=== PATIENT | male | born 1940 ===

== ENCOUNTER 2019-11-23 18:23 | Inpatient (IN) | payer MEDICARE, OTHER ==
[~2019-11-23] VITALS: Ht 177.8 cm; Wt 98.9 kg
--- NOTE | ~2019-11-23 | HEMODYNAMI ---
PATIENT:PERRY VICK MEDICAL RECORD: [id number] : 44 LOCATION:D.ND D.2225 ADMISSION DATE: 11/23/19 Generatedon:11/25/20199:54 Patient name: PERRY VICK Patient #: [id number] SSN: DO B: 1940 Date of study: 11/25/2019 Page: Of Hemodynamic Procedure Report Patient Data Patient Demographics Procedure consent was obtained First Name: PERRY Gender: Male Last Name: NAVA : 1940 Patient #: [id number] Age: 79 year(s) Race: Unknown Additional ID: [id number] Contact details Address: [address] [place] [address] State: [place] City: [facility] Zip code: [address] Admission Admission Data Admission Date: 11/23/2019 Admission Time: 18:23 Room #: D.2225 Procedure Procedure Types Cath Procedure Peripheral Cath Diagnostic Procedure Miscellaneous Procedure Description Procedure Date Procedure Date: 11/25/2019 Procedure Start Time: 9:40 Procedure Staff Name Function Franklin Benitez MD Performing Physician Guerrero Holden RT Monitor RUTHIE FLOYD RT Scrub Roxy Mendes RN Nurse Procedure Data Cath Procedure Fluoroscopy Diagnostic fluoroscopy Total fluoroscopy Time: 4.4 time: 4.4 min min Diagnostic fluoroscopy Total fluoroscopy dose: 153 dose: 153 mGy mGy Contrast Material Contrast Material Type Amount (ml) Isovue 300 20 Diagnostic catheters Device Type Used For End Catheter Placement Merit Impress KA 2 5Fr 40CM catheter ([id number]) Hemodynamics Rest Pre Cath Intra NCS Post Cath Procedure Log Time Note 9:18:07 Time tracking: Regular hours (M-F 7:00 - 5:00) 9:18:09 Guerrero Holden RT (R) (CV) sent for patient. Start room use. 9:18:25 Time tracking: Regular hours (M-F 7:00 - 5:00) 9:18:33 Patient received from Med/Surg to IR Alert and oriented. Tansferred to table in Supine position. 9:18:37 Signed procedure consent form obtained from guardian. 9:18:37 Warm blankets applied, and moe hugger turned on for patient comfort. 9:18:40 Full Disclosure recording started 9:18:40 9:18:41 Pre-procedure instructions explained to patient. 9:18:42 Pre-procedure instructions explained to patient. 9:18:44 Family unavailable. 9:18:46 Patient NPO since Midnight. 9:21:18 Use device set IR Diagnostic 9:21:20 Sterile Angiographic Pack opened to sterile field. 9:21:21 Bag Decanter (2002S) opened to sterile field. 9:21:42 Pre-op teaching completed and patient verbalized understanding. 9:22:49 IV patent on arrival in right hand with 0.45%NaCl at KVO. 9:39:19 Left Abdomen was prepped with chlora-prep and draped in sterile fashion. 9:39:20 Physician arrived 9:39:20 --------ALL STOP TIME OUT------ 9:39:21 Final Timeout: patient, procedure, and site verified with staff and physician. All members of the team are in agreement. 9:39:26 Left abdomen site verified by team. 9:39:45 Sedation plan: Local Anesthetic Medication:Lidocaine 9:39:53 Procedure started. 9:40:03 Local anesthetic to Abdominal area with Lidocaine 1% by Franklin Benitez MD.INITIAL ACCESS ONLY 9:40:40 DILATOR, VESSEL 5/20 opened to sterile field. 9:40:49 GLIDE WIRE ANGLE 180cm ([id number]) opened to sterile field. 9:44:34 A Merit Impress KA 2 5Fr 40CM catheter ([id number]) was advanced over the wire and used for . 9:52:41 Procedure ended.(Physican Out) 9:52:53 Fluoroscopy time 04.40 minutes. 9:52:57 Fluoroscopy dose: 153 mGy 9:52:57 Flurop Dose total: 153 9:53:01 Contrast amount:Isovue 300 20ml. 9:53:10 Post Abdominal area:stable 9:53:16 Report given to Med/Surg. 9:53:22 Patient transfered to Med/Surg with Bed. Device Usage Item Name Manufacture Quantity Catalog Hospital Part Current Minimal Lot# / Number Charge Number Stock Stock Serial# Code Sterile Cardinal 1 [id number] 5 Angiographic Health Pack Bag Decanter Microtek [id number] 37586 [id number] 5 () Medical Inc. DILATOR, Engagor Medical 1 [id number] 13195 [id number] 5 [id number] VESSEL 12/08 GLIDE WIRE Terumo 1 [id number] 996531 [id number] 5 ANGLE 180cm ([id number]) Merit Merit 1 [id number] [id number] [id number] 5 Impress KA 2 Medical 5Fr 40CM catheter ([id number]) Signature Audit [place] Stage Time Signature Unsigned Intra-Procedure 11/25/2019 Guerrero 9:54:30 AM Navin RT (R) (CV) [facility] [address] [place] [address]
[2019-11-23] MEDS ORDERED: PACERONE200 MG PO (18:48)
[2019-11-23] MEDS ORDERED: BAYER CHEWABLE81 MG PEG (18:49)
[2019-11-23] MEDS ORDERED: LIPITOR20 MG PEG ×2 (18:50→18:52)
[2019-11-23] MEDS ORDERED: ATIVAN0.5 MG PO (18:50)
[2019-11-23] MEDS ORDERED: CARBIDOPA-LEVO1 EAC2 PEG (18:54)
[2019-11-23] MEDS ORDERED: COLACE100 MG PEG (18:55)
[2019-11-23] MEDS ORDERED: CELEXA10 MG PEG (18:55)
[2019-11-23] MEDS ORDERED: GEMFIBROZIL600 MG PEG (18:56)
[2019-11-23] MEDS ORDERED: FUROSEMIDE20 MG PEG (18:58)
[2019-11-23] MEDS ORDERED: SYNTHROID150 MCG PEG (18:58)
[2019-11-23] MEDS ORDERED: MELATONIN 3 MG1 TAB PO (18:59)
[2019-11-23] MEDS ORDERED: MULTI-DAY VITAM1 TAB PEG (19:01)
[2019-11-23] MEDS ORDERED: NYSTATIN OINTME15 GM TOPICAL (19:03)
[2019-11-23] MEDS ORDERED: FUROSEMIDE40 MG PO (22:48)
[2019-11-23] MEDS ORDERED: NYSTATIN1 PWD TOPICAL (22:49)
[2019-11-23] MEDS ORDERED: PEPCID AC20 MG PO ×2 (22:50)
[2019-11-23] MEDS ORDERED: MIRALAX17 GM PO (23:09)
[2019-11-23] MEDS ORDERED: METHOCARBAMOL500 MG PO (23:12)
[2019-11-23] MEDS ORDERED: MIRAPEX0.25 MG PO (23:12)
[2019-11-23] MEDS ORDERED: THERMOTABS 1 GM1 GM PO (23:13)
[2019-11-23] MEDS ORDERED: SENNA LAXATIVE8.6 MG PO (23:13)
[2019-11-23] MEDS ORDERED: TRAZODONE HCL150 MG (23:14)
[2019-11-23] MEDS ORDERED: ACETAMINOPHEN325 MG PO (23:39)
[2019-11-23] MEDS ORDERED: ASCORBIC ACID500 MG PO (23:40)
[2019-11-23] MEDS ORDERED: ZINC-220220 MG PO (23:40)
[2019-11-23 23:47] VITALS: BP 133/73; BMI 31.3
[2019-11-24 01:03] LABS: BASOPHILS 0.1 % (0-2); EOSINOPHILS 0.7 % (0-7); HEMATOCRIT 37.3 % (42.0-54.0); IMMATURE GRANULOCYTES 0.1 % (0-5); LYMPHOCYTES 19.9 % (15-50); MCH 32.4 pg (26.0-34.0); MCHC 32.2 g/dL (31.0-37.0); MCV 100.8 fL (80.0-100.0); MEAN PLATELET VOLUME 9.9 fL (7.4-10.4); MONOCYTES 11.2 % (2-11); PLATELET COUNT 252 10x3/uL (130-400); RDW 15.2 % (11.5-14.5); WBC 6.9 10x3/uL (4.8-10.8)
[2019-11-24 01:46] LABS: ANION GAP 9.5 mmol/L (8-16); BILIRUBIN - TOTAL 0.53 mg/dL (0.2-1.3); CALCIUM 9.5 mg/dL (8.5-10.1); CARBON DIOXIDE 30.7 mmol/L (21.0-32.0); CREATININE - SERUM 1.6 mg/dL (0.6-1.3); POTASSIUM - SERUM 4.2 mmol/L (3.5-5.1); PROTEIN - SERUM 7.3 g/dL (6.4-8.2)
[2019-11-24 05:50] VITALS: BP 114/53
[2019-11-24 05:54] LABS: APTT 30.2 SECONDS (22.8-39.4); INR 1.34 (0.85-1.17); PROTIME 16.5 SECONDS (11.6-15.0)
[2019-11-24 06:15] LABS: ANION GAP 10.8 mmol/L (8-16); BILIRUBIN - TOTAL 0.6 mg/dL (0.2-1.3); CALCIUM 9.3 mg/dL (8.5-10.1); CARBON DIOXIDE 32.3 mmol/L (21.0-32.0); CREATININE - SERUM 1.5 mg/dL (0.6-1.3); MAGNESIUM - SERUM 2.4 mg/dL (1.8-2.4); PHOSPHOROUS 3.9 mg/dL (2.5-4.9); POTASSIUM - SERUM 4.1 mmol/L (3.5-5.1); PROTEIN - SERUM 7.3 g/dL (6.4-8.2)
[2019-11-24 06:53] LABS: HEMATOCRIT 37.9 % (42.0-54.0); HEMOGLOBIN 12.2 g/dL (13.5-17.5); MCH 33.2 pg (26.0-34.0); MCHC 32.2 g/dL (31.0-37.0); MEAN PLATELET VOLUME 11.5 fL (7.4-10.4); PLATELET COUNT 217 10x3/uL (130-400); RBC 3.67 10x6/uL (4.20-6.10); RDW 15.7 % (11.5-14.5); WBC 7.2 10x3/uL (4.8-10.8)
[2019-11-24 07:15] LABS: MCV 103.3 fL (80.0-100.0)
[2019-11-24 09:16] VITALS: BP 120/63
[2019-11-24 12:56] LABS: LYMPHOCYTES 27 % (15-50); MONOCYTES 9 % (2-11); NEUTROPHILS 61 % (40-80); PLATELET ESTIMATE NORMAL
[2019-11-24 13:14] VITALS: Ht 177.8 cm; Wt 98.9 kg
[2019-11-24 13:20] VITALS: BP 121/72
--- NOTE | 2019-11-24 16:30 | NUR ---
PATIENT DRESSING TO PEG SITE CHANGED. PATIENT REPOSITIONED AND CLEANED UP AGAIN AT THIS TIME. IV INTACT. CALL LIGHT WITHIN REACH.
--- NOTE | 2019-11-24 18:45 | NUR ---
PATIENT IN BED WITH IV INTACT. NO COMPLAINTS. CALL LIGHT WITHIN REACH.
[2019-11-24 18:56] VITALS: BP 128/63
[2019-11-24 20:00] VITALS: BP 131/62
--- NOTE | 2019-11-25 03:14 | NUR ---
I have reviewed this patient and I concur with the Shift Assessment completed by the Licensed Practical Nurse today this shift.
[2019-11-25 04:00] VITALS: BP 145/71
[2019-11-25 05:29] LABS: BASOPHILS 0.4 % (0-2); HEMATOCRIT 35.5 % (42.0-54.0); HEMOGLOBIN 11.2 g/dL (13.5-17.5); IMMATURE GRANULOCYTES 0.2 % (0-5); LYMPHOCYTES 26.2 % (15-50); MCH 33.1 pg (26.0-34.0); MCHC 31.5 g/dL (31.0-37.0); MEAN PLATELET VOLUME 9.8 fL (7.4-10.4); MONOCYTES 14.5 % (2-11); NEUTROPHILS 56.7 % (40-80); PLATELET COUNT 246 10x3/uL (130-400); RBC 3.38 10x6/uL (4.20-6.10); RDW 15.3 % (11.5-14.5)
[2019-11-25 05:47] LABS: WBC 5.1 10x3/uL (4.8-10.8)
[2019-11-25 06:00] LABS: ANION GAP 12.7 mmol/L (8-16); CALCIUM 9.2 mg/dL (8.5-10.1); CARBON DIOXIDE 29.6 mmol/L (21.0-32.0); CREATININE - SERUM 1.4 mg/dL (0.6-1.3); MAGNESIUM - SERUM 2.5 mg/dL (1.8-2.4); PHOSPHOROUS 3.5 mg/dL (2.5-4.9); POTASSIUM - SERUM 4.3 mmol/L (3.5-5.1)
[2019-11-25 08:00] VITALS: BP 124/63
[2019-11-25 12:00] VITALS: BP 123/63
--- NOTE | 2019-11-25 14:42 | NUR ---
Nutrition consult for resumption of TF: Received order for Dr. Gandhi to resume TF. custodial regimen as follows: Nepro started @ 25 ml/hr. Increase 10 ml q 4 hours to goal rate of 55 ml/hr Flush tube with 100 ml H2O q 4 hours HOB > 30 degrees Thank you for the consult. RDN following.
[2019-11-25 16:00] VITALS: BP 120/57
--- NOTE | 2019-11-25 17:00 | NUR ---
PEG TUBE FLUSHED AND MEDS GIVEN. FLUSHED AGAIN AND STARTED TF ORDERED. PATIENT IN BED WITH IV INTACT. NO COMPLAINTS OR SIGNS OF DISTRESS. CALL LIGHT WITHIN REACH.
[2019-11-25 20:00] VITALS: BP 133/64
--- NOTE | 2019-11-25 23:00 | NUR ---
ADVANCED G TUBE FEEDING BY 10ML/HR. NOW AT 35ML/HR. RESIDUAL 0. WILL CONTINUE TO CLOSELY MONITOR.
--- NOTE | 2019-11-26 01:02 | NUR ---
PT RESTING IN BED. EYES CLOSED. NO SIGNS OF DISTRESS. BREATHING EVEN AND UNLABROED. IV SITE RT HAND DRESSING CLEAN DRY AND INTACT. NO SIGNS OF INFECTION OR INFULTRATION. GENERLIZED WEAKNESS. G TUBE PRESENT CLEAN DRY AND INTACT. TUBE FEEDING GOING. 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 PT HAS PARKINSONS. WILL CONTINUE PLAN OF CARE. CALL LIGHT IN REACH. BED LOWERED AND LOCKED. BED RAILS UPX2.
--- NOTE | 2019-11-26 03:43 | NUR ---
INCREASED TUBE FEEDING BY 10ML/HR. NOW AT 45ML/HR. RESIDUAL 0. WILL CONTINUE TO CLOSELY MONITOR.
[2019-11-26 04:00] VITALS: BP 130/58
--- NOTE | 2019-11-26 04:24 | NUR ---
I have reviewed this patient and I concur with the Shift Assessment completed by the Licensed Practical Nurse today this shift.
[2019-11-26 06:21] LABS: BASOPHILS 0.4 % (0-2); EOSINOPHILS 1.6 % (0-7); HEMATOCRIT 35.4 % (42.0-54.0); HEMOGLOBIN 11.1 g/dL (13.5-17.5); IMMATURE GRANULOCYTES 0.2 % (0-5); LYMPHOCYTES 26.9 % (15-50); MCH 32.6 pg (26.0-34.0); MCHC 31.4 g/dL (31.0-37.0); MCV 104.1 fL (80.0-100.0); MEAN PLATELET VOLUME 9.8 fL (7.4-10.4); MONOCYTES 15.2 % (2-11); NEUTROPHILS 55.7 % (40-80); PLATELET COUNT 268 10x3/uL (130-400); RDW 15.4 % (11.5-14.5); WBC 5.1 10x3/uL (4.8-10.8)
[2019-11-26 06:46] LABS: ANION GAP 13.5 mmol/L (8-16); CALCIUM 9.1 mg/dL (8.5-10.1); CARBON DIOXIDE 26.3 mmol/L (21.0-32.0); CREATININE - SERUM 1.4 mg/dL (0.6-1.3); MAGNESIUM - SERUM 2.3 mg/dL (1.8-2.4); PHOSPHOROUS 2.9 mg/dL (2.5-4.9); POTASSIUM - SERUM 3.8 mmol/L (3.5-5.1)
--- NOTE | 2019-11-26 07:38 | NUR ---
ALERT AND ORIENTED. LUNGS CLEAR BILATERALLY. HEART SOUNDS S1 AND S2 HEARD IN ALL CABRAL. BOWEL SOUNDS ACTIVE X 4. PEG PATENT. WILL CHECK RESIDUAL AND INCREASE RATE. IV TO RIGHT HAND PATENT WITHOUT REDNESS. DENIES NEEDS. BED LOW. CALL SHEEHAN AND PERSONAL ITEMS IN REACH. WILL CONTINUE TO MONITOR.
[2019-11-26 08:00] VITALS: BP 110/49
--- NOTE | 2019-11-26 09:00 | NUR ---
PEG TUBE CHECKED WITH NO RESIDUAL NOTED. FEED INCREASED PER ORDER TO GOAL RATE OF 55ML/HR.
[2019-11-26 12:00] VITALS: BP 126/63
--- NOTE | 2019-11-26 12:24 | MORECARE ---
CASE MANAGEMENT DISCHARGE SUMMARY PATIENT: PERRY VICK UNIT: [id number] ADM DATE: 11/23/19 AGE: 79 : 42 SEX: M ROOM/BED: D.2225 AUTHOR: MARLON OLIVAREZ PHYSICIAN: REFERRING PHYSICIAN: JACIKE BRIDGES MD DATE OF SERVICE: 11/26/19 Discharge Plan Patient Name: PERRY VICK Facility: [facility]:[place] : 1940 Planned Disposition: Shear Setter Care Fac [facility] Anticipated Discharge Date: Discharge Date: Expected LOS: Initial Reviewer: [email or web address] Initial Review Date: 11/26/2019 Generated: 11/26/19 1:23 pm DCPIA - Discharge Planning Initial Assessment Updated by [email or web address]: Maliha Montes on 11/26/19 12:23 pm * Is the patient Alert and Oriented? No * PCP [facility] * Pharmacy [facility] External Providers External Provider: [facility] Next Contact Date: Service Request Date: Service Type: Resolution: Reviewer: Comments: Patient Name: PERRY VICK Page [phone] at 1224 All edits/amendments must be made on the electronic document DICTATION DATE: 11/26/19 1223 HORSE BREAKER: RED 11/26/19 1223 RPT#: [id number] DC DATE: STATUS: ADM IN [facility] [address] [place] [address] END OF REPORT
--- NOTE | 2019-11-26 12:31 | MORECARE ---
CASE MANAGEMENT DISCHARGE SUMMARY PATIENT: PERRY VICK UNIT: [id number] ADM DATE: 11/23/19 AGE: 79 : 42 SEX: M ROOM/BED: D.2225 AUTHOR: MARLON OLIVAREZ PHYSICIAN: REFERRING PHYSICIAN: JACKIE BRIDGES MD DATE OF SERVICE: 11/26/19 Discharge Plan Patient Name: PERRY VICK Facility: [facility]:[place] : 1940 Planned Disposition: National Account Director Care Fac [facility] Anticipated Discharge Date: Discharge Date: Expected LOS: Initial Reviewer: [email or web address] Initial Review Date: 11/26/2019 Generated: 11/26/19 1:30 pm Comments DCP- Discharge Planning Updated by [email or web address]: Maliha Montes on 11/26/19 11:[address] Patient Name: PERRY VICK Admission Status: Elective Accout number: [id number] Admission Date: 11-23-2019 : 1940 Admission Diagnosis:GASTROSTOMY MALFUNCTION Attending: YULIANA, Current LOS: 3 Anticipated DC Date: Planned Disposition: National Account Director Care [facility] Primary Insurance: MEDICARE A & B Discharge Planning Comments: PATIENT HISTORY CVA, UNABLE TO ANSWER QUESTIONS. SPOKE WITH [facility]. HE IS IN A SENIOR STOCK PLAN ADMINISTRATOR CARE BED AT THE FACILITY. RN CAN CALL REPORT TO [phone]. HE WILL NEED TO BE TRANSPORTED BY AMBULANCE WHEN DC'D. I WILL ATTEMPT TO CALL HIS DAUGHTER EARNEST YU AT [phone] TO NOTIFY HIS DC BACK TO INTERMEDIATE. CM TO FOLLOW AND ASSIST. Manipulative Therapy Specialist: Maliha Montes DCPIA - Discharge Planning Initial Assessment Updated by [email or web address]: Maliha Montes on 11/26/19 12:23 pm * Is the patient Alert and Oriented? No * PCP [facility] * Pharmacy [facility] Last DP export: 11/26/19 11:24 am Patient Name: PERRY VICK Page 52382 at 1231 All edits/amendments must be made on the electronic document DICTATION DATE: 11/26/19 1231 ELECTRONICS MECHANIC APPRENTICE: DM 11/26/19 1231 RPT#: [id number] DC DATE: STATUS: ADM IN [facility] [address] [place] [address] END OF REPORT
--- NOTE | 2019-11-26 13:20 | NUR ---
DISCHARGE EDUCATION PROVIDED BOTH WRITTEN AND VERBAL. VERBALIZED UNDERSTANDING. UNABLE TO SIGN PAPERWORK D/T PARKINSONS. SIGNED BY TWO RNS. DENIES FURTHER NEEDS. IV REMOVED FROM RIGHT HAND WITH TIP INTACT. REPORT CALLED TO [facility]. DENIES FURTHER QUESTIONS. WAITING AMBULANCE.
--- NOTE | 2019-11-26 13:31 | NUR ---
PATIENT DC HOME WITH ALL BELONGINGS.
--- NOTE | 2019-11-26 14:03 | NUR ---
PATIENT DC TO [facility] VIA AMBULANCE WITH ALL BELONGINGS.
--- NOTE | 2019-11-27 10:38 | MORECARE ---
CASE MANAGEMENT DISCHARGE SUMMARY PATIENT: PERRY VICK UNIT: [id number] ADM DATE: 11/23/19 AGE: 79 : 42 SEX: M ROOM/BED: D.2225 AUTHOR: MARLON OLIVAREZ PHYSICIAN: REFERRING PHYSICIAN: JACKIE BRIDGES MD DATE OF SERVICE: 11/27/19 Discharge Plan Patient Name: PERRY VICK Facility: [facility]:[place] : 1940 Planned Disposition: Certified Pedorthotist Care Fac [facility] Anticipated Discharge Date: Discharge Date: 11/26/2019 Expected LOS: Initial Reviewer: [email or web address] Initial Review Date: 11/26/2019 Generated: 11/27/19 11:38 am Comments DCP- Discharge Planning Updated by [email or web address]: Maliha Montes on 11/26/19 11:[address] Patient Name: PERRY VICK Admission Status: Elective Accout number: [id number] Admission Date: 11-23-2019 : 1940 Admission Diagnosis:GASTROSTOMY MALFUNCTION Attending: YULIANA, Current LOS: 3 Anticipated DC Date: Planned Disposition: Senior Care Care Fac [facility] Primary Insurance: MEDICARE A & B Discharge Planning Comments: PATIENT HISTORY CVA, UNABLE TO ANSWER QUESTIONS. SPOKE WITH [facility]. HE IS IN A SKILLED NURSING CARE BED AT THE FACILITY. RN CAN CALL REPORT TO [phone]. HE WILL NEED TO BE TRANSPORTED BY AMBULANCE WHEN DC'D. I WILL ATTEMPT TO CALL HIS DAUGHTER EARNEST YU AT [phone] TO NOTIFY HIS DC BACK TO RETIREMENT. CM TO FOLLOW AND ASSIST. Ladle Liner Helper: Maliha Montes DCPIA - Discharge Planning Initial Assessment Updated by [email or web address]: Maliha Montes on 11/26/19 12:23 pm * Is the patient Alert and Oriented? No * PCP [facility] * Pharmacy [facility] Last DP export: 11/26/19 11:31 am Patient Name: PERRY VICK Page 62192 at 1038 All edits/amendments must be made on the electronic document DICTATION DATE: 11/27/19 1038 MINING ANALYST: DM 11/27/19 1038 RPT#: [id number] DC DATE:11/26/19 STATUS: DIS IN [facility] [address] [place] [address] END OF REPORT
--- NOTE | 2019-11-27 15:53 | MORECARE ---
CASE MANAGEMENT DISCHARGE SUMMARY PATIENT: PERRY VICK UNIT: [id number] ADM DATE: 11/23/19 AGE: 79 : 42 SEX: M ROOM/BED: D.2225 AUTHOR: MARLON OLIVAREZ PHYSICIAN: REFERRING PHYSICIAN: JACKIE BRIDGES MD DATE OF SERVICE: 11/27/19 Discharge Plan Patient Name: PERRY VICK Facility: [facility]:[place] : 1940 Planned Disposition: Anesthesiology Physician Assistant Care [facility] Anticipated Discharge Date: Discharge Date: 11/26/2019 Expected LOS: Initial Reviewer: [email or web address] Initial Review Date: 11/26/2019 Generated: 11/27/19 4:52 pm Comments DCP- Discharge Planning Updated by [email or web address]: Maliha Montes on 11/27/19 2:[address] Patient Name: PERRY VICK Admission Status: Elective Accout number: [id number] Admission Date: 11-23-2019 : 1940 Admission Diagnosis:GASTROSTOMY MALFUNCTION Attending: YULIANA, Current LOS: 3 Anticipated DC Date: Planned Disposition: Anesthesiology Physician Assistant Care [facility] Primary Insurance: MEDICARE A & B Discharge Planning Comments: PATIENT UNABLE TO MAKE DECISIONS FOR HIMSELF. SPOKE WITH PATIENT DAUGHTER EARNEST DODD AND EXPLAINED IMM AND PATIENT CHOICE LETTER OVER THE PHONE. MS. DODD DOES WANT PATIENT TO GO BACK TO [facility] WHERE HE IS A RESIDENT. COPY OF IMM AND CHOICE LETTER IS BEING MAILED CERTEFIED RETURN RECEIPT REQUESTED TO MS. DODD. COPY GIVEN TO WILLIAM SMITH RN CM ADMISSIONS RN TO MAIL. Nuclear Logging Engineer: Maliha Montes DCP- Discharge Planning Updated by [email or web address]: Maliha Montes on 11/26/19 11:[address] Patient Name: PERRY VICK Admission Status: Elective Accout number: [id number] Admission Date: 11-23-2019 : 1940 Admission Diagnosis:GASTROSTOMY MALFUNCTION Attending: YULIANA, Current LOS: 3 Anticipated DC Date: Planned Disposition: Anesthesiology Physician Assistant Care [facility] Primary Insurance: MEDICARE A & B Discharge Planning Comments: PATIENT HISTORY CVA, UNABLE TO ANSWER QUESTIONS. [facility] HE IS IN A PRINTED CIRCUIT BOARD PANELS TRIMMER CARE BED AT THE FACILITY. RN CAN CALL REPORT TO [phone]. HE WILL NEED TO BE TRANSPORTED BY AMBULANCE WHEN DC'D. I WILL ATTEMPT TO CALL HIS DAUGHTER EARNEST YU AT [phone] TO NOTIFY HIS DC BACK TO RETIREMENT. CM TO FOLLOW AND ASSIST. Nuclear Logging Engineer: Maliha Montes DCPIA - Discharge Planning Initial Assessment Updated by [email or web address]: Maliha Montes on 11/26/19 12:23 pm * Is the patient Alert and Oriented? No * PCP [facility] * Pharmacy [facility] Last DP export: 11/27/19 9:38 am Patient Name: PERRY VICK Page [phone] at 1553 All edits/amendments must be made on the electronic document DICTATION DATE: 11/27/191551 SUPERVISOR STERILE PROCESSING: RED 11/27/19 155 RPT#: [id number] DC DATE:11/26/19 STATUS: DIS IN [facility] [address] [place] [address] END OF REPORT
== END 2019-11-26 14:03 | DRG 394 ==
LOC: D.MS 18:23
PROVIDERS: Internal Medicine Nephrology; Radiology Vascular & Interventional Radiology; ADMIT Family Medicine; ATTEND Family Medicine
PROC: 0D20XUZ Change Feeding Device in Upper Intestinal Tract, External Approach (ICD-10-PCS; principal; 2019-11-25 09:00)
DX: K94.23 Gastrostomy malfunction (principal); N17.9 Acute kidney failure, unspecified; I13.0 Hypertensive heart and chronic kidney disease with heart failure and stage 1 through stage 4 chronic kidney disease, or unspecified chronic kidney disease; E44.0 Moderate protein-calorie malnutrition; R62.7 Adult failure to thrive; Z68.31 Body mass index [BMI] 31.0-31.9, adult; I48.91 Unspecified atrial fibrillation; E78.5 Hyperlipidemia, unspecified; I50.9 Heart failure, unspecified; F41.9 Anxiety disorder, unspecified; Z89.611 Acquired absence of right leg above knee; G20 Parkinson's disease; N18.9 Chronic kidney disease, unspecified; J44.9 Chronic obstructive pulmonary disease, unspecified; E03.9 Hypothyroidism, unspecified; Z86.73 Personal history of transient ischemic attack (TIA), and cerebral infarction without residual deficits

== ENCOUNTER → 2020-02-15 13:16 | Outpatient (CLI) | payer MEDICARE, OTHER ==
[2019-11-24 13:14] VITALS: BMI 31.2
--- NOTE | ~2020-02-15 | HEMODYNAMI ---
PATIENT:PERRY VICK MEDICAL RECORD: [id number] : [birth year] [id number] ADMISSION DATE: 02/15/20 Generatedon:02/15/202014:20 Patient name: PERRY VICK Patient #: [id number] SSN: DO B: 1940 Date of study: 02/15/2020 Page: Of Hemodynamic Procedure Report Patient Data Patient Demographics Procedure consent was obtained First Name: PERRY Gender: Male Last Name: NAVA : 1940 Patient #: [id number] Age: 80 year(s) Race: Unknown Additional ID: [id number] Contact details Address: [address] [place] [address] State: [place] City: [facility] Zip code: [address] Past Medical History Allergies: No known allergies Admission Admission Data Admission Date: 02/15/2020 Admission Time: 13:16 Procedure Procedure Types Cath Procedure Peripheral Cath Diagnostic Procedure Gastric G Tube Replacement Procedure Description Procedure Date Procedure Date: 02/15/2020 Procedure Start Time: 14:11 Procedure Staff Name Function Gregory Finnegan MD Performing Physician Sharmaine Self RT Monitor RUTHIE FLOYD RT Scrub Sera LOUIS RN Nurse Procedure Data Cath Procedure Fluoroscopy Diagnostic fluoroscopy Total fluoroscopy Time: 0.7 time: 0.7 min min Diagnostic fluoroscopy Total fluoroscopy dose: 36 dose: 36 mGy mGy Contrast Material Contrast Material Type Amount (ml) Isovue 300 10 Hemodynamics Rest Pre Cath Intra NCS Post Cath Procedure Log Time Note 13:52:57 Use device set IR Diagnostic 13:52:59 Bag Decanter (2002S) opened to sterile field. 13:52:59 Sterile Angiographic Pack opened to sterile field. 13:52:59 Tegaderm 4 x 4 (1626W) opened to sterile field. 14:02:28 Time tracking: Regular hours (M-F 7:00 - 5:00) 14:03:18 Plan of Care:Hemodynamics will remain stable., Cardiac rhythm will remain stable., Comfort level will be maintained., Respiratory function will remain adequate., Patient/ family verbilizes understanding of procedure., Procedure tolerated without complication., Recovers from procedure without complications.. 14:03:24 Patient received from Other to IR Alert and oriented. Tansferred to table in Supine position. 14:03:34 Signed procedure consent form obtained from verbally. 14:03:45 H&P Date Dictated: 02/15/2020 Within 30 days and on chart.. 14:03:49 Pre-procedure instructions explained to patient. 14:03:50 Pre-op teaching completed and patient verbalized understanding. 14:04:01 Patient allergic to No known allergies 14:04:06 Is the patient allergic to Iodine/contrast media? No. 14:04:25 Left abdomen area was prepped with chlora-prep and draped in sterile fashion 14:04:27 - 14:10:17 Physician arrived 14:10:18 --------ALL STOP TIME OUT------ 14:10:19 Final Timeout: patient, procedure, and site verified with staff and physician. All members of the team are in agreement. 14:11:03 Procedure started. 14:11:03 Full Disclosure recording started 14:13:10 GASTROSTOMY 18Fr Tri-Funnel Tube ([id number]) opened to sterile field. 14:13:18 AMPLATZ Super Stiff 75cm wire ([id number]) opened to sterile field. 14:18:12 Procedure ended.(Physican Out) 14:19:02 Fluoroscopy time 00.70 minutes. 14:19:06 Fluoroscopy dose: 36 mGy 14:19:06 Flurop Dose total: 36 14:19:14 Contrast amount:Isovue 300 10ml. 14:20:20 Procedure and supply charges have been captured, reviewed, submitted an d are correct. Device Usage Item Name Manufacture Quantity Catalog Hospital Part Current Minimal Lot# / Number Charge Number Stock Stock Serial# Code Bag Decanter Microtek 1 [id number] 5 (2002S) Medical Inc. Sterile Cardinal 1 [id number] [id number] 5 Angiographic Health Pack Tegaderm 4 x 3M 1 1626W 640279 996175 [id number] 5 4 (1626W) GASTROSTOMY Bard 1 433168 215773 780958 5 18Fr Tri-Funnel Tube (467522) AMPLATZ [place] 1 [id number] 812779 906901 287791 5 Super Stiff Scientific 75cm wire ([id number]) Signature Audit [place] Stage Time Signature Unsigned Intra-Procedure 02/15/2020 Sharmaine Self 2:20:47 PM RT(R) [facility] [address] [place] [address]
[~2020-02-15 13:16] MED LIST: ACETAMINOPHEN325 MG PO; ASCORBIC ACID500 MG PO; ATIVAN0.5 MG PO; BAYER CHEWABLE81 MG PEG; CARBIDOPA-LEVO1 EAC2 PEG; CELEXA10 MG PEG; COLACE100 MG PEG; FUROSEMIDE20 MG PEG; FUROSEMIDE40 MG PO; GEMFIBROZIL600 MG PEG; LIPITOR20 MG PEG; MELATONIN 3 MG1 TAB PO; METHOCARBAMOL500 MG PO; MIRALAX17 GM PO; MIRAPEX0.25 MG PO; MULTI-DAY VITAM1 TAB PEG; NYSTATIN OINTME15 GM TOPICAL; NYSTATIN1 PWD TOPICAL; PACERONE200 MG PO; PEPCID AC20 MG PO; SENNA LAXATIVE8.6 MG PO; SYNTHROID150 MCG PEG; THERMOTABS 1 GM1 GM PO; TRAZODONE HCL150 MG; ZINC-220220 MG PO
== END | disposition home or self-care (01) ==
LOC: D.RAD 13:16
PROVIDERS: ATTEND General Practice
DX: K94.23 Gastrostomy malfunction (principal); G20 Parkinson's disease; N18.3 Chronic kidney disease, stage 3 (moderate); E03.9 Hypothyroidism, unspecified